=== PATIENT | male | born 1950 | race Caucasian/White ===

== ENCOUNTER → 2016-10-27 | Outpatient (CLI) | payer OTHER ==
[~2016-10-27] MED LIST: APAP650 PO; AUGMENTIN 875875 MG PO; BISACODYL SUPP10 MG RECTAL; CALCIUM 500 +1 EAC5 PO; CARNITOR S100 MG/1 M PER TUBE; CARVEDILOL12.5 MG PER TUBE; CHLORHEXADINE120 M1 TOP; CHOLESTYRAMINE P4 GM PO; CLONIDINE0.1 PO; CONSTULOSE10 GM/15 M PO; DEPAKENE250 MG PO; FLAGYL500 MG IVPB; FLONASE 0.05%50 MCG NASAL; FLUCONAZOL200 MG/105 IVPB; LAMICTAL100 MG PO; LISINOPRIL5 MG PO; LORATIDINE 10 M10 M1 PO; MAGOX 400400 MG PO; NEXIUM40 MG PO; ONDANSETRON ODT4 MG PO; REGLAN 10 MG TA10 MG PO; STOOL SOFTENER100 M1 RECTAL; TRIPLE PASTE TP; VALIUM5 MG PO; VENTOLIN HFA 1818 GM INH
[2016-10-27 07:50] VITALS: BP 133/82
[2016-10-27 08:11] LABS: HEMOGLOBIN 13.9 gm/dL (14.0-18.0); MCH 29.5 pg (26.0-34.0); MCHC 33.1 g/dL (28.0-37.0); MCV 89.1 fL (80.0-100.0); RBC 4.71 mil/uL (4.50-6.00); RDW 14.9 % (10.5-14.5); WBC 15.8 thou/uL (4.0-11.0)
== END ==
LOC: SPEC 07:11 → EDBD 07:11 → SPEC 10:11
PROVIDERS: Radiology Vascular & Interventional Radiology
DX: G40.909 Epilepsy, unspecified, not intractable, without status epilepticus (principal); Z53.9 Procedure and treatment not carried out, unspecified reason; J45.909 Unspecified asthma, uncomplicated

== ENCOUNTER → 2016-11-02 | Outpatient (CLI) | payer OTHER ==
[2016-11-02 11:26] VITALS: BP 129/81
== END | disposition home or self-care (01) ==
LOC: SPEC 11:21
DX: K94.23 Gastrostomy malfunction (principal); I10 Essential (primary) hypertension; J45.909 Unspecified asthma, uncomplicated